=== PATIENT | female | born 1995 | race Caucasian/White ===

== ENCOUNTER 2020-11-03 05:42 | Emergency (ER) | payer SELFPAY ==
[2020-11-03 06:00] VITALS: BP 120/70; Wt 54.5 kg
[2020-11-03 06:42] LABS: BILIRUBIN NEGATIVE (NEGATIVE); KETONE NEGATIVE mg/dL (< 1+); NITRITE NEGATIVE (NEGATIVE); PH 6.5 (5.0-8.0); UROBILINOGEN NORMAL mg/dL (< 2)
[2020-11-03 06:45] LABS: HCG URINE NEGATIVE (NEGATIVE)
[2020-11-03 06:47] LABS: CALC OSMOLALITY 285 mosm/kg (275-300); CHLORIDE - SERUM 107 mmol/L (98-107); CREATININE - SERUM 0.8 mg/dL (0.6-1.3); GLUCOSE 109 mg/dL (74-106); POTASSIUM - SERUM 3.4 mmol/L (3.5-5.1); SODIUM 143 mmol/L (136-145); UREA NITROGEN 12 mg/dL (7-18); eGFR NON AFRICAN AMERICAN > 90 mL/min (90-120)
[2020-11-03 06:48] LABS: BASOPHILS 0.4 % (0-2); EOSINOPHILS 8.6 % (0-7); HEMATOCRIT 37.4 % (36.0-48.0); HEMOGLOBIN 12.9 g/dL (12-16); LYMPHOCYTES 41.3 % (15-50); MCH 29.6 pg (26.0-34.0); MCHC 34.4 g/dL (31.0-37.0); MEAN PLATELET VOLUME 8.1 fL (7.4-10.4); MONOCYTES 7.7 % (2-11); PLATELET COUNT 218 10x3/uL (130-400); RBC 4.35 10x6/uL (4.00-5.40); RDW 12.9 % (11.5-14.5); WBC 6.9 10x3/uL (4.8-10.8)
[2020-11-03 06:53] LABS: ALBUMIN 4.1 g/dL (3.4-5.0); ALKALINE PHOSPHATASE 33 U/L (30-120); ALT (SGPT) 36 U/L (10-68); LIPASE 67 U/L (73-393); PROTEIN - SERUM 7.4 g/dL (6.4-8.2)
[2020-11-03] MEDS ORDERED: ZOFRAN ODT4 MG/UDTAB PO (09:03)
[2020-11-03] MEDS ORDERED: HYDROCODON-ACE1 EAC7 PO (09:03)
== END 2020-11-03 09:23 | disposition home or self-care (01) ==
LOC: D.ER 05:42
PROVIDERS: Family Medicine
DX: K80.20 Calculus of gallbladder without cholecystitis without obstruction (principal)